=== PATIENT | female | born 1975 | race Caucasian/White ===

== ENCOUNTER 2018-03-24 09:40 | Emergency (ER) | payer BC, OTHER ==
[2018-03-24] MEDS ORDERED: VENLAFAXINE HCL 75 MG TABLET PO ONE (10:10)
[2018-03-24] MEDS ORDERED: NORMAL SALINE 1000 ML 1,000 ML IV ONE (10:11)
[2018-03-24] MEDS ORDERED: METOCLOPRAMIDE HCL INJ/PF 10 MG/2 ML SDV IV ONE (10:11)
[2018-03-24] MEDS ORDERED: DIPHENHYDRAMINE HCL 50 MG/ML VIAL IV ONE (10:11)
[2018-03-24] MEDS ORDERED: KETOROLAC TROMETHAMINE INJ/PF 30 MG/1 ML SDV IV ONE (10:11)
--- NOTE | 2018-03-24 10:18 | ER Document Report ---
ED General - General Chief Complaint: Numbness Stated Complaint: HEADACHE Time Seen by Provider: 03/24/18 09:58 TRAVEL OUTSIDE OF THE [place] IN LAST 30 DAYS: No - HPI Notes: 42-year-old female presents to the emergency department complaining of difficulty breathing, headache and extremity numbness. Stated the extremity numbness is more left upper extremity and face. 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 Patient denies any illicit drug use. The patient stated she usually takes Effexor 150 mg. Her she ran out cold turkey several days ago. Called her family doctor today asking for refill on the medication however when she explained symptoms to her doctor that told her to come to the ER. The patient denies chest pain but has had some difficulty breathing she complains of a dull headache more so on the left. She does get headaches from time to time but not often. This is similar in character. She complains of paresthesias of the left face and arm. He complains of palpitations. She states she just does not quite feel well. She attributes it to being without the Effexor. She has never stopped cold turkey like this before. - Related Data Allergies/Adverse Reactions: Penicillins Allergy (Verified 03/24/18 09:43) Past Medical History - Social History Smoking Status: Never Smoker Chew tobacco use (# tins/day): No Frequency of alcohol use: Occasional Drug Abuse: None Family History: None Patient has suicidal ideation: No Patient has homicidal ideation: No Renal/ Medical History: Denies: Hx Peritoneal Dialysis Review of Systems - Review of Systems Constitutional: denies: Chills, Fever Cardiovascular: Palpitations. denies: Chest pain Respiratory: Short of breath. denies: Cough, Hemoptysis Neurological/Psychological: Anxiety, Sensory change, Headaches, Tingling -: Yes All other systems reviewed and negative Physical Exam - Vital signs Vitals: Temp Pulse Resp BP Pulse Ox 98.3 F 85 16 145/90 H 100 03/24/18 09:53 03/24/18 09:53 03/24/18 09:53 03/24/18 09:53 03/24/18 09:53 - Notes Notes: GENERAL_APPEARANCE: well_nourished, alert, cooperative, no_acute_distress, no_ obvious_discomfort. VITALS: reviewed, see vital signs table. HEAD: no_swelling\\tenderness on the head. EYES: PERRL, EOMI, conjunctiva_clear. NOSE: no_nasal_discharge. MOUTH: (-)decreased moisture. THROAT: no_tonsilar_inflammation, no_airway_obstruction. no_lymphadenopathy NECK: supple, no_neck_tenderness, (-)thyromegaly. BACK: no_back_tenderness. CHEST_WALL: no_chest_tenderness. LUNGS: no_wheezing, no_rales, no_rhonchi, (-)accessory muscle use, good air exchange bilateral. HEART: normal_rate, normal_rhythm, normal_S1, normal_S2, (-)S3, (-)S4, no_ murmur, no_rub. ABDOMEN: normal_BS, soft, no_abd_tenderness, (-)guarding, (-)rebound, no_ organomegaly, no_abd_masses. EXTREMITIES: strength 5/5 in all_extremities, good pulses in all_extremities, no_swelling\\tenderness in the extremities, no_edema. SKIN: warm, dry, good_color, no_rash. MENTAL_STATUS: speech_clear, oriented_X_3, anxious_affect, responds_ appropriately to questions. NEURO: Neg Motor Deficits on exam, objective tingling in the left face and left arm no specific dermatome, the remainder of the sensory is intact there is no diminished sensory function 2 point discrimination intact on the left. CN 2- 12 intact, DTR 2+ symmetric x 4, No cerbellar signs Course - Re-evaluation Re-evalutation: 03/24/18 10:16 42-year-old female who comes in with multiple complaints. She complains some dyspnea some palpitations. Some paresthesias on the left face and left arm and headache. She states that she thinks it is all due to going off the Effexor. She was on 150 mg daily and has not had in 4 days. She is asking for some of that medicine I will give her her daily dose of 150 mg. Also give her a migraine cocktail with Toradol, Reglan and Benadryl. We will scan her head. I do not think she is having a stroke. Her last stroke by history was "stress related "I am unsure what this signifies. This was cared for at [facility]. Patient notes she is also out of her Synthroid. 03/24/18 10:18 03/24/18 13:36 Laboratory 03/24/18 03/24/18 03/24/18 10:25 10:25 10:25 WBC 5.3 RBC 4.02 Hgb 10.9 L Hct 32.8 L MCV 82 MCH 27.1 MCHC 33.2 RDW 14.3 H Plt Count 249 Seg Neutrophils % 67.3 Lymphocytes % 21.9 Monocytes % 8.0 Eosinophils % 2.4 Basophils % 0.4 Absolute Neutrophils 3.6 Absolute Lymphocytes 1.2 Absolute Monocytes 0.4 Absolute Eosinophils 0.1 Absolute Basophils 0.0 Sodium 143.5 Potassium 4.0 Chloride 108 H Carbon Dioxide 23 Anion Gap 13 BUN 11 Creatinine 0.82 Est GFR ( Amer) > 60 Est GFR (Non-Af Amer) > 60 Glucose 111 H Calcium 9.4 Total Bilirubin 0.3 Direct Bilirubin 0.2 Neonat Total Bilirubin Not Reportable Neonat Direct Bilirubin Not Reportable Neonat Indirect Bili Not Reportable AST 21 ALT 22 Alkaline Phosphatase 47 Creatine Kinase 122 Troponin I < 0.012 Total Protein 7.0 Albumin 4.0 TSH Free T4 Urine Color Urine Appearance Urine pH Ur Specific [place] Urine Protein Urine Glucose (UA) Urine Ketones Urine Blood Urine Nitrite Urine Bilirubin Urine Urobilinogen Ur Leukocyte Esterase Urine WBC (Auto) Urine RBC (Auto) Urine Bacteria (Auto) Squamous Epi Cells Auto Urine Mucus (Auto) Urine Ascorbic Acid 03/24/18 03/24/18 10:25 11:00 WBC RBC Hgb Hct MCV MCH MCHC RDW Plt Count Seg Neutrophils % Lymphocytes % Monocytes % Eosinophils % Basophils % Absolute Neutrophils Absolute Lymphocytes Absolute Monocytes Absolute Eosinophils Absolute Basophils Sodium Potassium Chloride Carbon Dioxide Anion Gap BUN Creatinine Est GFR ( Amer) Est GFR (Non-Af Amer) Glucose Calcium Total Bilirubin Direct Bilirubin Neonat Total Bilirubin Neonat Direct Bilirubin Neonat Indirect Bili AST ALT Alkaline Phosphatase Creatine Kinase Troponin I Total Protein Albumin TSH 12.90 H Free T4 0.95 Urine Color YELLOW Urine Appearance SLIGHTLY-CLOUDY Urine pH 6.0 Ur Specific Cum[place] 1.012 Urine Protein NEGATIVE Urine Glucose (UA) NEGATIVE Urine Ketones NEGATIVE Urine Blood SMALL H Urine Nitrite NEGATIVE Urine Bilirubin NEGATIVE Urine Urobilinogen NEGATIVE Ur Leukocyte Esterase SMALL H Urine WBC (Auto) 33 Urine RBC (Auto) 5 Urine Bacteria (Auto) TRACE Squamous Epi Cells Auto 1 Urine Mucus (Auto) RARE Urine Ascorbic Acid NEGATIVE She says she is feeling a lot better since having the Effexor. Like a prescription for home. She has a follow-up later in a week with her doctor. I spoke with the patient's about the limitations of CT scan. Certainly CT scan is not terribly sensitive for stroke or TIA. Patient states she is feeling better and is most certain this is from the Effexor and withdrawal. I spoke with her at length about the risks and benefits of going home versus observation she would rather go home she has a follow-up with her appointment may care this week. Urine did have 33 white cells over the patient denies any urinary complaints and we have opted not to treat this at this time. She did have some squamous cells indicating some mild contamination. 03/24/18 13:41 SSRI Withdrawl syndrome considered. - Vital Signs Vital signs: Temp Pulse Resp BP Pulse Ox 98.3 F 76 16 144/98 H 100 03/24/18 09:53 03/24/18 13:00 03/24/18 13:01 03/24/18 13:01 03/24/18 13:01 - Laboratory Result Diagrams: 03/24/18 10:25 03/24/18 10:25 Laboratory results interpreted by me: 03/24/18 03/24/18 03/24/18 10:25 10:25 10:25 Hgb 10.9 L Hct 32.8 L RDW 14.3 H Chloride 108 H Glucose 111 H TSH 12.90 H Urine Blood Ur Leukocyte Esterase 03/24/18 11:00 Hgb Hct RDW Chloride Glucose TSH Urine Blood SMALL H Ur Leukocyte Esterase SMALL H - Diagnostic Test Radiology reviewed: Image reviewed Radiology results interpreted by me: 03/24/18 13:36 Chest X-Ray 03/24/18 10:10 IMPRESSION: NO ACUTE RADIOGRAPHIC FINDING IN THE CHEST. Head CT 03/24/18 10:10 IMPRESSION: NORMAL BRAIN CT WITHOUT CONTRAST. EVIDENCE OF ACUTE STROKE: NO. - EKG Interpretation by Me EKG shows normal: Sinus rhythm Rate: Normal Rhythm: NSR Discharge - Discharge Clinical Impression: Arm paresthesia, left Headache Qualifiers: Headache type: other headache syndrome Qualified Code(s): G44.89 - Other headache syndrome Disposition: HOME, SELF-CARE Instructions: Headache ([facility]) Additional Instructions: His follow-up with your doctor as scheduled. As we have discussed our testing is not 100% if her symptoms seem to get worse even with the Effexor use may still be having a stroke. Please return to the ER immediately to be reevaluated. Prescriptions: Venlafaxine HCl ER [Effexor Xr 75 mg Cap.sr] 150 mg PO DAILY #10 cap.sr.24h Referrals: ENE DUTTA NP [Primary Care Provider] - Follow up as needed
[2018-03-24 10:47] LABS: ABSOLUTE EOSINOPHILS # (AUTO) 0.1 10^3/uL (0.0-0.6); ABSOLUTE LYMPHOCYTES (AUTO) 1.2 10^3/uL (0.5-4.7); ABSOLUTE MONOCYTES (AUTO) 0.4 10^3/uL (0.1-1.4); ABSOLUTE NEUT (AUTO) 3.6 10^3/uL (1.7-8.2); BASOPHILS % (AUTO) 0.4 % (0-2); EOSINOPHILS % (AUTO) 2.4 % (0-6); HEMATOCRIT 32.8 % (36.0-47.0); HEMOGLOBIN 10.9 g/dL (12.0-15.5); LYMPHOCYTES % (AUTO) 21.9 % (13-45); MEAN CORPUSCULAR HEMOGLOBIN 27.1 pg (27.0-33.4); MEAN CORPUSCULAR HGB CONC 33.2 g/dL (32.0-36.0); MEAN CORPUSCULAR VOLUME 82 fl (80-97); PLATELET COUNT 249 10^3/uL (150-450); RED BLOOD COUNT 4.02 10^6/uL (3.72-5.28); RED CELL DISTRIBUTION WIDTH 14.3 % (11.5-14.0); SEGMENTED NEUTROPHILS % (AUTO) 67.3 % (42-78); TOTAL CELLS COUNTED % (AUTO) 100 %; WHITE BLOOD COUNT 5.3 10^3/uL (4.0-10.5)
--- NOTE | 2018-03-24 10:49 | RADIOLOGY REPORT (SQ) ---
EXAM DESCRIPTION: CHEST SINGLE VIEW COMPLETED DATE/TIME: 03/24/2018 10:41 am REASON FOR STUDY: headache COMPARISON: None. EXAM PARAMETERS: NUMBER OF VIEWS: One view. TECHNIQUE: Single frontal radiographic view of the chest acquired. RADIATION DOSE: NA LIMITATIONS: None. FINDINGS: LUNGS AND PLEURA: No opacities, masses or pneumothorax. No pleural effusion. MEDIASTINUM AND HILAR STRUCTURES: No masses. Contour normal. HEART AND VASCULAR STRUCTURES: Heart normal in size. Normal vasculature. BONES: No acute findings. HARDWARE: None in the chest. OTHER: No other significant finding. IMPRESSION: NO ACUTE RADIOGRAPHIC FINDING IN THE CHEST. TECHNICAL DOCUMENTATION: JOB ID: [id number] [employer]- All Rights Reserved Reading location - IP/workstation name: [email or web address]
[2018-03-24 11:00] LABS: ALANINE AMINOTRANSFERASE 22 U/L (9-52); ALKALINE PHOSPHATASE 47 U/L (38-126); ANION GAP 13 (5-19); ASPARTATE AMINO TRANSFERASE 21 U/L (14-36); BILIRUBIN,DIRECT 0.2 mg/dL (0.0-0.4); BILIRUBIN,TOTAL 0.3 mg/dL (0.2-1.3); BLOOD UREA NITROGEN 11 mg/dL (7-20); CALCIUM 9.4 mg/dL (8.4-10.2); CARBON DIOXIDE 23 mmol/L (22-30); CHLORIDE 108 mmol/L (98-107); CREATINE KINASE 122 U/L (30-135); GLUCOSE 111 mg/dL (75-110); SODIUM 143.5 mmol/L (137-145)
--- NOTE | 2018-03-24 11:29 | RADIOLOGY REPORT (SQ) ---
EXAM DESCRIPTION: CT HEAD WITHOUT COMPLETED DATE/TIME: 03/24/2018 11:17 am REASON FOR STUDY: headache COMPARISON: None. TECHNIQUE: Axial images acquired through the brain without intravenous contrast. Images reviewed wi th bone, brain and subdural windows. Images stored on PACS. All CT scanners at this facility use dose modulation, iterative reconstruction, and/or weight based d osing when appropriate to reduce radiation dose to as low as reasonably achievable (ALARA). [facility]: Dose Right [facility]: CareDose [facility]: Dose Right [facility]: Teradose 4D [facility]: WindSim RADIATION DOSE: CT Rad equipment meets quality standard of care and radiation dose reduction techniq ues were employed. CTDIvol: 53.2 mGy. DLP: 964 mGy-cm. mGy. LIMITATIONS: None. FINDINGS: VENTRICLES: Normal size and contour. CEREBRUM: No masses. No hemorrhage. No midline shift. No evidence for acute infarction. Normal gra y/white matter differentiation. No areas of low density in the white matter. CEREBELLUM: No masses. No hemorrhage. No alteration of density. No evidence for acute infarction. EXTRAAXIAL SPACES: No fluid collections. No masses. ORBITS AND GLOBE: No intra- or extraconal masses. Normal contour of globe without masses. CALVARIUM: No fracture. PARANASAL SINUSES: No fluid or mucosal thickening. SOFT TISSUES: No mass or hematoma. OTHER: No other significant finding. IMPRESSION: NORMAL BRAIN CT WITHOUT CONTRAST. EVIDENCE OF ACUTE STROKE: NO. COMMENT: Quality ID # [id number]: Final reports with documentation of one or more dose reduction techniques (e.g., Automated exposure control, adjustment of the mA and/or kV according to patient size, use of iterative reconstruction technique) TECHNICAL DOCUMENTATION: JOB ID: [id number] [employer]- All Rights Reserved Reading location - IP/workstation name: [email or web address]
[2018-03-24 11:42] LABS: APPEARANCE,URINE SLIGHTLY-CLOUDY; BILIRUBIN,URINE NEGATIVE (NEGATIVE); COLOR,URINE YELLOW; GLUCOSE, URINE NEGATIVE (NEGATIVE); KETONES,URINE NEGATIVE (NEGATIVE); LEUKOCYTE ESTERASE,URINE SMALL (NEGATIVE); NITRITE,URINE NEGATIVE (NEGATIVE); PROTEIN,URINE NEGATIVE (NEGATIVE); URINE SPECIFIC GRAVITY 1.012; UROBILINOGEN,URINE NEGATIVE mg/dL (<2.0)
[2018-03-24] MEDS ORDERED: ONDANSETRON HCL INJ/PF 4 MG/2 ML SDV ONE (11:49)
[2018-03-24 12:44] LABS: FREE T4 (FREE THYROXINE) 0.95 ng/dL (0.78-2.19)
[2018-03-24 12:58] LABS: THYROID STIMULATING HORMONE 12.9 uIU/mL (0.47-4.68)
[2018-03-24 13:51] VITALS: BP 132/89
--- NOTE | 2018-03-24 22:08 | EKG REPORT ---
SEVERITY:- NORMAL ECG - SINUS RHYTHM : Confirmed by: Shaun Crawley 24-Mar-2018 22:07:39
== END 2018-03-24 13:55 | disposition home or self-care (01) ==
LOC: ER 09:40
DX: G44.89 Other headache syndrome (principal); R20.2 Paresthesia of skin; R06.00 Dyspnea, unspecified; Z86.73 Personal history of transient ischemic attack (TIA), and cerebral infarction without residual deficits; Z88.0 Allergy status to penicillin
CPT/HCPCS: 93005; 99285; 96361; 96374; 36415; 84439; 82550; 84443; 85025; 80053; 81001; 84484; 71045; 70450; 93010; J2405; J7030